=== PATIENT | female | born 1980 | race Caucasian/White ===

== ENCOUNTER 2023-09-03 15:28 | Outpatient (CLI) | payer MEDICAID ==
[2023-09-03 17:02] LABS: Anion Gap 15 mmol/L (10-20); BUN (Urea Nitrogen) 9 mg/dL (7.0-18.7); Calc. Creatinine Clearance 0 mL/min (70-130); Calcium 9.3 mg/dL (7.8-10.44); Carbon Dioxide 22 mmol/L (22-29); Chloride 104 mmol/L (98-107); Estimated GFR 98; Glucose 83 mg/dL (70-105); Potassium 3.7 mmol/L (3.5-5.1); Sodium 137 mmol/L (136-145)
[2023-09-03 17:26] LABS: #Basophils 0.1 10x3/uL (0.0-0.2); #Monocytes 0.7 10x3/uL (0.0-1.1); #Neutrophils 6.2 10x3/uL (1.5-8.4); %Eosinophils 0.3 % (0.0-6.0); %Lymphocytes 18.9 % (18.0-47.0); %Monocytes 7.6 % (0.0-10.0); %Neutrophils 71.6 % (40.0-75.0); Hematocrit 30.2 % (34.9-44.5); Hemoglobin 8.4 g/dL (12.0-15.5); Mean Corpuscular HGB CONC 27.8 g/dL (32.0-36.0); Mean Corpuscular Hemoglobin 17.9 pg (27.0-33.0); Mean Corpuscular Volume 64.3 fl (81.6-98.3); Mean Platelet Volume 9.7 fl (7.4-10.4); Platelet Count 298 10x3/uL (150-450); RBC Distribution Width 19.4 % (11.5-14.5); White Blood Cell (WBC) Count 8.7 10x3/uL (3.5-10.5)
[2023-09-03 20:42] LABS: Anisocytosis SLIGHT = 6-15 cells (100X) (0-5/hpf); Elliptocytes SLIGHT = 2-5 cells (100X) (0-1/hpf); Hypochromia MODERATE=16-30 cells (100X) (0-5/hpf); Microcytosis SLIGHT = 6-15 cells (100X) (0-5/hpf); Poikilocytosis SLIGHT = 6-15 cells (100X) (0-5/hpf)
[2023-09-03 20:43] LABS: Platelet Adequacy Comment Appears Adequate; Tear Drops SLIGHT = 2-5 cells (100X) (0-1/hpf)
== END 2023-09-03 15:29 | disposition home or self-care (01) ==
LOC: LABBT 15:28
PROVIDERS: ATTEND Specialist
DX: Z01.818 Encounter for other preprocedural examination (principal); C50.912 Malignant neoplasm of unspecified site of left female breast; N63.10 Unspecified lump in the right breast, unspecified quadrant
CPT/HCPCS: 80048; 85025; 93005; 93010

== ENCOUNTER 2023-09-10 07:01 | Day surgery (SDC) | payer OTHER ==
[2023-09-03 15:53] VITALS: BMI 24.1
[2023-09-10] MEDS ORDERED: Acetaminophen 500 MG TAB ONE (09:22)
[2023-09-10] MEDS ORDERED: Ketorolac Tromethamine 30 MG/ML VIAL ONE (09:22)
[2023-09-10] MEDS ORDERED: Lidocaine 2% PF 5 ML VIAL ONE ×2 (10:50→10:55)
[2023-09-10] MEDS ORDERED: EPINEPHrine 1 MG/ML VIAL ONE ×2 (10:50→12:27)
[2023-09-10] MEDS ORDERED: Isosulfan Blue 50 MG/5 ML VIAL ONE (10:50)
[2023-09-10] MEDS ORDERED: Bupivacaine 0.25% HCL 30 ML VIAL ONE ×2 (10:50→12:27)
[2023-09-10] MEDS ORDERED: Ondansetron PF 4 MG/2 ML Vial ONE ×3 (10:55→13:42)
[2023-09-10] MEDS ORDERED: Dexamethasone 20 MG/5 ML VIAL ONE ×2 (10:55→11:13)
[2023-09-10] MEDS ORDERED: fentaNYL PF 100 MCG/2 ML SYRINGE ONE (10:55)
[2023-09-10] MEDS ORDERED: PROPOFOL 20 ML ONE (10:55)
[2023-09-10] MEDS ORDERED: HYDROmorphone 0.5 MG/0.5 ML SYRINGE ONE ×2 (11:04→11:06)
[2023-09-10] MEDS ORDERED: CEFAZOLIN 2 GM VIAL ONE (11:06)
[2023-09-10] MEDS ORDERED: Sodium Chloride 0.9% 100 ML ONE (11:07)
[2023-09-10] MEDS ORDERED: PROPOFOL 200 MG/20 ML VIAL ONE (11:13)
[2023-09-10] MEDS ORDERED: ePHEDrine Sulfate 50 MG/10 ML VIAL ONE ×2 (11:13→11:30)
[2023-09-10] MEDS ORDERED: Lidocaine 1% PF 5 ML VIAL ONE (11:13)
[2023-09-10] MEDS ORDERED: Midazolam HCl 2 mg/2 ml Vial ONE (11:13)
[2023-09-10] MEDS ORDERED: Metoclopramide HCl 10 MG/2 ML VIAL ONE (14:31)
== END 2023-09-10 15:22 | disposition home or self-care (01) ==
LOC: NM 07:01
PROVIDERS: ATTEND Specialist
PROC: 0HBU0ZZ Excision of Left Breast, Open Approach (ICD-10-PCS; principal; 2023-09-10)
PROC: 0HB5XZX Excision of Chest Skin, External Approach, Diagnostic (ICD-10-PCS; principal; 2023-09-10)
DX: C50.912 Malignant neoplasm of unspecified site of left female breast (principal); N63.20 Unspecified lump in the left breast, unspecified quadrant; D64.9 Anemia, unspecified; G43.909 Migraine, unspecified, not intractable, without status migrainosus; Z98.890 Other specified postprocedural states; Z87.891 Personal history of nicotine dependence; Z88.5 Allergy status to narcotic agent; Z79.899 Other long term (current) drug therapy
CPT/HCPCS: 76098; 78195; 88307; 88342; A9541; C1713; J0171; J1100; J1170; J1885; J2001; J2250; J2405; J2704; J2765; J3490; Q9968; S0020

== ENCOUNTER 2024-05-27 09:54 | Outpatient (CLI) | payer OTHER | END 2024-05-27 09:55 | disposition home or self-care (01) | LOC: BICMAMMO 09:54 | PROVIDERS: ATTEND Internal Medicine | DX: N63.21 Unspecified lump in the left breast, upper outer quadrant (principal) | CPT/HCPCS: 77066; G0279 ==

== ENCOUNTER 2024-11-30 09:06 | Outpatient (CLI) | payer OTHER | END 2024-11-30 09:07 | disposition home or self-care (01) | LOC: BICMAMMO 09:06 | PROVIDERS: ATTEND Specialist | DX: C50.812 Malignant neoplasm of overlapping sites of left female breast (principal); Z98.890 Other specified postprocedural states | CPT/HCPCS: G0279 ==